=== PATIENT | female | born 1935 | race Caucasian/White ===

== ENCOUNTER 2017-04-04 15:47 | Emergency (ER) | payer OTHER, BC ==
[~2017-04-04] VITALS: Ht 154.9 cm; Wt 63.4 kg
[~2017-04-04 15:47] MED LIST: ALLEGRA ALLERG180 MG PO; BIOTIN1000 MCG PO; CLOBETASOL PROP59 ML TP; DICYCLOMINE HCL10 MG PO; ECOTRIN325 MG PO; ESOMEPRAZOLE MA40 MG PO; GENTAMICIN SULFA5 ML TD; LO-DOSE ASPIRIN81 M2 PO; LOSARTAN POTAS100 MG PO; METOPROLOL SUCC25 MG PO; NABUMETONE500 MG PO; PRAVASTATIN SOD40 MG PO; VITAMIN D32000 UNI1 PO
[2017-04-04 16:08] LABS: HEMATOCRIT 39.9 % (36.0-46.0); MCH 29.9 PG (29.0-34.0); MCHC 33.3 G/DL (30.0-36.0); MCV 89.7 FL (83-99); MEAN PLAT.VOLUME 9.1 uM^3 (9.5-12.4); PLATELET COUNT 265 K/uL (156-360); RBC DIS.WIDTH-CV 12.6 % (11.8-14.6); RBC DIS.WIDTH-SD 41.2 % (39-53); RED BLOOD COUNT 4.45 M/uL (3.80-5.20)
[2017-04-04 16:19] LABS: CHLORIDE 102 mEq/L (99-109); SODIUM 136 mEq/L (136-147)
[2017-04-04 16:21] LABS: GLUCOSE 102 mg/dL (70-99)
[2017-04-04 16:22] LABS: ANION GAP 8 MEQ/L (2-14)
[2017-04-04 16:24] LABS: GFR ESTIMATE (CALCULATED) > 59 mL/min/
[2017-04-04 16:25] LABS: UREA NITROGEN (BUN) 18 mg/dL (9-23)
[2017-04-04 16:29] LABS: TROP-I INTERPRETATION NEGATIVE; TROPONIN-I < 0.01 ng/mL (0.0-0.30)
[2017-04-04 17:00] VITALS: BP 154/87
== END 2017-04-04 17:40 | disposition home or self-care (01) ==
LOC: EME 15:47
DX: R07.9 Chest pain, unspecified (principal); I10 Essential (primary) hypertension; Z85.3 Personal history of malignant neoplasm of breast; Z79.82 Long term (current) use of aspirin
CPT/HCPCS: 71020; 80048; 84484; 85027; 93005; 99281; 99284